=== PATIENT | female | born 1975 | race Caucasian/White ===

== ENCOUNTER 2020-07-26 03:57 | Emergency (ER) | payer MEDICAID ==
[~2020-07-26] VITALS: Ht 154.9 cm; Wt 77.3 kg
[2020-07-26 04:25] VITALS: BP 156/89
[2020-07-26] MEDS ORDERED: ACETAMINOPHEN 325 MG TABLET PO ONE (05:15)
[2020-07-26 05:17] LABS: COVID AG,FIA SOURCE NASOPHARYNGEAL
== END 2020-07-26 06:58 | disposition home or self-care (01) ==
LOC: EMS 04:03
DX: U07.1 COVID-19 (principal); R07.9 Chest pain, unspecified; R05 Cough
CPT/HCPCS: 87426; 93005; 99284; U0003; Z7502; Z7610

== ENCOUNTER 2021-03-10 09:16 | Emergency (ER) | payer MEDICAID ==
[~2021-03-10] VITALS: Ht 160 cm; Wt 77.3 kg
[2021-03-10] MEDS ORDERED: KETOROLAC TROMETHAMINE 60 MG/2 ML VIAL IM ONE (12:30)
[2021-03-10 13:02] LABS: BASOPHILS % (AUTO) 0.6 % (0.0-2.0); EOSINOPHILS % (AUTO) 1.2 % (1.0-6.0); HEMATOCRIT 40.1 % (36-46); HEMOGLOBIN 13.2 g/dL (12.0-16.0); LYMPHOCYTES # (AUTO) 2.7 K/uL (1.0-4.8); LYMPHOCYTES % (AUTO) 37.8 % (22.0-44.0); MEAN CORPUSCULAR HEMOGLOBIN 28.4 pg (26.0-34.0); MEAN CORPUSCULAR HGB CONC 32.9 G/dL (31.0-37.0); MEAN CORPUSCULAR VOLUME 86 fL (80-100); MONOCYTES # (AUTO) 0.6 K/uL (0.1-1.0); MONOCYTES % (AUTO) 8.3 % (2.0-9.0); NEUTROPHILS # (AUTO) 3.7 K/uL (1.8-7.7); NEUTROPHILS % (AUTO) 52.1 % (40.0-70.0); PLATELET COUNT (AUTO) 320 K/uL (150-450); RED BLOOD CELL COUNT(AUTO) 4.63 MIL/uL (4.00-5.20); RED CELL DISTRIBUTION WIDTH 14.1 % (11.5-14.5)
[2021-03-10 13:10] LABS: ANION GAP 7 mmol/L (8-16); CALCIUM, TOTAL 8.6 mg/dL (8.8-10.5); CARBON DIOXIDE 28 mmol/L (22-29); CHLORIDE 105 mmol/L (98-107); CREATININE 0.57 mg/dL (0.60-1.30); GLOMERULAR FILTR. RATE CALC > 60 mL/min (>60); GLUCOSE,RANDOM 93 mg/dL (70-110); POTASSIUM 3.5 mmol/L (3.5-5.1); SODIUM SERUM 140 mmol/L (136-145); UREA NITROGEN, BLOOD 12 mg/dL (7-18)
[2021-03-10 13:17] LABS: ALANINE AMINOTRANSFERASE 35 U/L (12-78); ALBUMIN 3.7 g/dL (3.4-5.0); ALKALINE PHOSPHATASE 71 U/L (46-116); ASPARTATE AMINOTRANSFERASE 21 U/L (15-37); BILIRUBIN,TOTAL 0.3 mg/dL (0.1-1.0); LIPASE 61 U/L (73-393); TOTAL PROTEIN, SERUM 8.2 g/dL (6.4-8.2)
[2021-03-10 16:32] VITALS: BP 125/71
== END 2021-03-10 16:45 | disposition home or self-care (01) ==
LOC: EMS 09:18
DX: K76.0 Fatty (change of) liver, not elsewhere classified (principal)
CPT/HCPCS: 36415; 74176; 80053; 83690; 85025; 96372; 99284; J1885